=== PATIENT | female | born 1990 | race Caucasian/White ===

== ENCOUNTER 2017-12-08 15:31 | Emergency (ER) | payer SELFPAY ==
[~2017-12-08] VITALS: Ht 170.2 cm; Wt 55.0 kg
[2017-12-08] MEDS ORDERED: KETOROLAC 15MG/ML VIAL IM ONE (19:30)
[2017-12-08 23:15] VITALS: BP 111/71
== END 2017-12-08 23:16 | disposition home or self-care (01) ==
LOC: ER 15:57
DX: S13.4XXA Sprain of ligaments of cervical spine, initial encounter (principal); M50.21 Other cervical disc displacement, high cervical region; V49.88XA Car occupant (driver) (passenger) injured in other specified transport accidents, initial encounter; Y93.89 Activity, other specified; Y92.89 Other specified places as the place of occurrence of the external cause; Y99.8 Other external cause status
CPT/HCPCS: 72040; 81025; 99284; J1885; Z7610